=== PATIENT | female | born 1990 | race Caucasian/White ===

== ENCOUNTER 2019-08-08 19:15 | Emergency (ER) | payer OTHER, MEDICAID ==
[~2019-08-08] VITALS: Ht 172.7 cm; Wt 107.5 kg
[2019-08-08 19:20] VITALS: BP_SYST 134
--- NOTE | 2019-08-08 19:20 | NUR ---
Placed in room 7 . Placed on ekg monitor tech, blood pressure machine and pulse oximeter. To gown for exam. Side rails up. Report given to Ananth SANTO.
--- NOTE | 2019-08-08 19:30 | NUR ---
Pt C/O hypertension x 2 days associated with headache x 2 weeks, nausea, dizziness and fatigue. Pt states she took Tylenol and used ice packs with minimal relief. Pt is approximately 15 weeks and OB states if BP is elevated to be seen in the ED. Denies any abdominal pain, or any other symptoms at this time. Will continue to monitor.
--- NOTE | 2019-08-08 19:40 | NUR ---
ER Dr. Rain at bedside examining patient.
--- NOTE | 2019-08-08 20:20 | NUR ---
Pt is resting in bed, no acute distress noted at this time.
[2019-08-08 20:24] LABS: BASOPHILS # (AUTO) 0.1 K/uL (0.0-0.2); BASOPHILS % (AUTO) 0.6 % (0.0-2.0); EOSINOPHILS # (AUTO) 0.2 K/uL (0.0-0.4); EOSINOPHILS % (AUTO) 1.5 % (0.0-4.0); HEMATOCRIT 35.5 % (36-48); HEMOGLOBIN 12.5 g/dL (12.0-16.0); MEAN CORPUSCULAR HEMOGLOBIN 30 pg (27-31); MEAN CORPUSCULAR HGB CONC 35 % (32-36); MEAN CORPUSCULAR VOLUME 86 fL (79.0-98.0); MONOCYTES # (AUTO) 0.6 K/uL (0.0-1.0); MONOCYTES % (AUTO) 5.4 % (1.7-9.3); NEUTROPHILS # (AUTO) 7.2 K/uL (1.8-7.7); NEUTROPHILS % (AUTO) 65.5 % (40.0-70.0); PLATELET COUNT (AUTO) 268 K/uL (130-430); RED BLOOD CELL COUNT(AUTO) 4.14 MIL/uL (4.2-6.2); RED CELL DISTRIBUTION WIDTH 13.5 % (9.0-15.0)
[2019-08-08 20:36] LABS: CALCIUM 9.9 mg/dL (8.4-11.0); CREATININE 0.56 mg/dL (0.55-1.30); POTASSIUM 3.5 mmol/L (3.5-5.1)
[2019-08-08 20:41] LABS: ALBUMIN 2.9 g/dL (3.4-4.8); TOTAL BILIRUBIN 0.2 mg/dL (0.0-1.0)
[2019-08-08 20:50] LABS: BILIRUBIN,URINE NEGATIVE (NEGATIVE); BLOOD, URINE NEGATIVE (NEGATIVE); CLARITY/URINE CLEAR (CLEAR); COLOR,URINE YELLOW (YELLOW); GLUCOSE,URINE NEGATIVE (NEGATIVE); KETONES,URINE NEGATIVE (NEGATIVE); LEUKOCYTE ESTERASE ,URINE TRACE (NEGATIVE); NITRITE, URINE NEGATIVE (NEGATIVE); PROTEIN URINE NEGATIVE (NEGATIVE); UROBILINOGEN,URINE 0.2 (0.2-1.0)
[2019-08-08 21:08] LABS: BACTERIA,URINE FEW /HPF (None Seen); RBC,URINE 0-3 /HPF (0-3); WBC,URINE 0-3 /HPF (0-3)
[2019-08-08 21:09] LABS: MUCUS,URINE None Seen /LPF (None Seen)
--- NOTE | 2019-08-08 21:22 | NUR ---
Pt is resting in bed, no acute distress noted at this time
--- NOTE | 2019-08-08 22:35 | NUR ---
Pt is resting in bed. Will continue to monitor.
--- NOTE | 2019-08-08 23:05 | NUR ---
Dr. Rain at bedside re-evaluating patient.
[2019-08-08 23:17] VITALS: BP_SYST 132
--- NOTE | 2019-08-08 23:17 | NUR ---
Patient given written and verbal discharge instructions and verbalizes understanding. ER MD discussed with patient the results and treatment provided. Patient in stable condition. ID arm band removed. Patient educated on pain management and to follow up with PMD. Pain Scale 0. Opportunity for questions provided and answered. Medication side effect fact sheet provided.
[2019-08-09] MEDS ORDERED: ONDANSETRON 4 MG ODT TAB ONE (09:40)
== END 2019-08-08 23:17 | disposition home or self-care (01) ==
LOC: SED 19:15
DX: O26.892 Other specified pregnancy related conditions, second trimester (principal); R10.9 Unspecified abdominal pain; R42 Dizziness and giddiness; Z88.5 Allergy status to narcotic agent; Z91.040 Latex allergy status; Z91.048 Other nonmedicinal substance allergy status; Z3A.15 15 weeks gestation of pregnancy
CPT/HCPCS: 36415; 80053; 81000-TC; 81025; 85025; 87086; 99283; Q0162